=== PATIENT | female | born 2000 | race Caucasian/White ===

== ENCOUNTER 2020-05-12 19:47 | Emergency (ER) | payer OTHER ==
[2020-05-12] MEDS ORDERED: Acetaminophen/HYDROcodone 325-10 MG Tab PO ONE (20:07)
--- NOTE | 2020-05-12 20:11 | EDM.PDOC ---
ED HPI GENERAL MEDICAL PROBLEM - General Chief Complaint: Lower Extremity Injury/Pain Stated Complaint: KNEE POPPED OUT OF PLACE Time Seen by Provider: 05/12/20 20:09 Source of Information: Reports: Patient History Limitations: Reports: No Limitations - History of Present Illness INITIAL COMMENTS - FREE TEXT/NARRATIVE: jumping on trampoline last night and right knee went out sideways. been taking aleve but '0'. painful to bear weight been using crutches. 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 ED EXAM, GENERAL - Physical Exam Exam: See Below Exam Limited By: No Limitations General Appearance: Alert, WD/WN, Mild Distress, Moderate Distress, Other (tearful pain) Ears: Hearing Grossly Normal Throat/Mouth: Normal Voice, No Airway Compromise Head: Atraumatic Neck: Non-Tender, Full Range of Motion Respiratory/Chest: No Respiratory Distress Cardiovascular: Regular Rate, Rhythm GI/Abdominal: Soft, Non-Tender (Female) Exam: Deferred Rectal (Female) Exam: Deferred Extremities: Other (right knee swollen, tender R/P, NV wnl, unable bear weight) Neurological: Alert, Oriented, Normal Cognition, No Motor/Sensory Deficits Psychiatric: Tearful Skin Exam: Warm, Dry, Normal Color Lymphatic: No Adenopathy Course - Vital Signs Last Recorded V/S: Last Vital Signs Temp 36.3 C 05/12/20 20:05 Pulse 94 05/12/20 20:05 Resp 16 05/12/20 20:05 BP 133/77 05/12/20 20:05 Pulse Ox 99 05/12/20 20:05 - Orders/Labs/Meds Meds: Medications Discontinued Medications Generic Name Dose Route Start Last Admin Trade Name Freq PRN Reason Stop Dose Admin Hydrocodone Bitart/Acetaminophen 1 tab 05/12/20 20:07 05/12/20 20:11 Bradford 325-10 Mg PO 05/12/20 20:08 1 tab ONETIME ONE Administration - Re-Assessments/Exams Free Text/Narrative Re-Assessment/Exam: 05/12/20 21:08 results discussed with pt. Departure - Departure Time of Disposition: 21:08 Disposition: Home, Self-Care 01 Condition: Good Clinical Impression: Right knee sprain Qualifiers: Encounter type: initial encounter Involved ligament of knee: unspecified ligament Qualified Code(s): S83.91XA - Sprain of unspecified site of right knee, initial encounter - Discharge Information Instructions: Knee Sprain, Adult, [id number] Forms: ED Department Discharge Additional Instructions: 1) wear immobilizer and use crutches 2) elevate leg as much as possible 3) see clinic tomorrow for MRI SCAN OF KNEE Sepsis Event Note (ED) - Evaluation Sepsis Screening Result: No Definite Risk - Focused Exam Vital Signs: Vital Signs Temp Pulse Resp BP Pulse Ox 05/12/20 20:05 36.3 C 94 16 133/77 99
--- NOTE | 2020-05-12 20:35 | CR ---
PROCEDURE INFORMATION: Exam: XR Right Knee Exam date and time: 05/12/2020 8:18 PM Age: 19 years old Clinical indication: Other: Twisted/pain; Additional info: Injury TECHNIQUE: Imaging protocol: XR Right knee. Views: 1 or 2 views. COMPARISON: No relevant prior studies available. FINDINGS: Bones/joints: Normal. Soft tissues: Normal. IMPRESSION: No fracture.
== END 2020-05-12 21:16 | disposition home or self-care (01) ==
LOC: DL.ED 19:47
DX: S83.91XA Sprain of unspecified site of right knee, initial encounter (principal); Z88.0 Allergy status to penicillin; X50.1XXA Overexertion from prolonged static or awkward postures, initial encounter; Y93.44 Activity, trampolining
CPT/HCPCS: 73560; 99283; A9270

== ENCOUNTER 2022-10-17 23:03 | Emergency (ER) | payer SELFPAY ==
[2022-10-17] MEDS ORDERED: Doxycycline Monohydrate 100 MG Cap PO ONE ×2 (23:04→23:25)
[2022-10-17] MEDS ORDERED: Doxycycline Monohydrate 100 MG Cap ONE (23:36)
== END 2022-10-17 23:54 | disposition home or self-care (01) ==
LOC: DL.ED 23:03
DX: S41.151A Open bite of right upper arm, initial encounter (principal); Z88.0 Allergy status to penicillin; W54.0XXA Bitten by dog, initial encounter
CPT/HCPCS: 99282; 99283; A9270